=== PATIENT | female | born 1995 | race Caucasian/White ===

== ENCOUNTER 2017-07-23 10:06 | Emergency (ER) | payer OTHER ==
[2017-07-23 10:29] VITALS: BP 122/82
--- NOTE | 2017-07-23 10:42 | UC ---
Respiratory Complaint HPI - HPI Summary HPI Summary: Patient presents to the with CC of cough, sore throat, bilateral ear pain and ringing. She endorses sick contacts. Denies N/V/C/D or APPLE. + for sinus infection last month and treated with abx, but states she has not felt much better since the medication. She has not tried any medication for relief. Denies travel history. Denies other symptoms at this time. - History of Current Complaint Chief Complaint: UCRespiratory Stated Complaint: THROAT\EAR PAIN,COUGH Time Seen by Provider: 07/23/17 10:31 Hx Obtained From: Patient Hx Last Menstrual Period: 06/29/17 ?: No Onset/Duration: Sudden Onset Timing: Constant Severity Initially: Mild Severity Currently: Mild Pain Intensity: 5 Pain Scale Used: 0-10 Numeric Character: Cough: Nonproductive Associated Signs And Symptoms: Positive: Nasal Congestion, Sinus Discomfort - Risk Factors Pulmonary Embolism Risk Factors: Negative Cardiac Risk Factors: Negative Pseudomonas Risk Factors: Negative Tuberculosis Risk Factors: Negative - Allergies/Home Medications Allergies/Adverse Reactions: Allergies Allergy/AdvReac Type Severity Reaction Status Date / Time No Known Allergies Allergy Verified 07/23/17 10:23 Home Medications: Home Medications Escitalopram (NF) [Lexapro 5 mg (NF)] 5 mg PO DAILY 07/23/17 [History Confirmed 07/23/17] PMH/Surg Hx/FS Hx/Imm Hx Previously Healthy: Yes - Surgical History Surgical History: None - Family History Known Family History: Positive: Unknown - Social History Occupation: Employed Part-time Lives: With Family Alcohol Use: Rare Substance Use Type: None Smoking Status (MU): Never Smoked Tobacco Have You Smoked in the Last Year: No - Immunization History Most Recent Influenza Vaccination: NOT IN 2017 Review of Systems Constitutional: Negative Skin: Negative ENT: Sore Throat, Ear Ache, Nasal Discharge, Sinus Congestion Respiratory: Cough Cardiovascular: Negative Motor: Negative Neurovascular: Negative Neurological: Negative Psychological: Negative Is Patient Immunocompromised?: No All Other Systems Reviewed And Are Negative: Yes Physical Exam Triage Information Reviewed: Yes Appearance: Well-Appearing, Well-Nourished Vital Signs: Initial Vital Signs Temp 97.9 F 07/23/17 10:24 Pulse 79 07/23/17 10:24 Resp 16 07/23/17 10:24 BP 122/82 07/23/17 10:24 Pulse Ox 99 07/23/17 10:24 Vital Signs Reviewed: Yes Eye Exam: Normal Eyes: Positive: Conjunctiva Clear Neck exam: Normal Neck: Positive: Supple, No Lymphadenopathy Respiratory Exam: Normal Respiratory: Positive: Chest non-tender, Lungs clear Musculoskeletal Exam: Normal Musculoskeletal: Positive: Strength Intact Neurological Exam: Normal Neurological: Positive: Alert Psychological Exam: Normal Psychological: Positive: Normal Response To Family Skin Exam: Normal UC Diagnostic Evaluation - Laboratory O2 Sat by Pulse Oximetry: 99 Respiratory Course/Dx - Course Course Of Treatment: Patient is evaluated for sinus congestion, cough, ear pain and throat pain. Strep negative. Lungs CTA. Frontal and maxillary sinus without pain. She is given supportive treatment for viral syndrome. She is OK with plan and discharge. Return precautions given. - Differential Dx/Diagnosis Differential Diagnosis/HQI/PQRI: Bronchitis, Influenza, Sinusitis Provider Diagnoses: Viral Syndrome Discharge - Discharge Plan Condition: Stable Disposition: HOME Patient Education Materials: Upper Respiratory Infection (ED), Viral Syndrome ( ED) Forms: *School Release Additional Instructions: Humidifier in the home will help. Tylenol for discomfort. Take all medications as directed. Symptoms should resolve in 1-3 weeks. If symptoms become worse, please come back to or go to the ED. Honey and lemon hot tea Rest plenty of fluids.
== END 2017-07-23 11:04 | disposition home or self-care (01) ==
LOC: UCCORT 10:06
DX: B34.9 Viral infection, unspecified (principal)
CPT/HCPCS: 87651; 99201; G0463

== ENCOUNTER 2017-09-08 11:41 | Emergency (ER) | payer OTHER ==
[2017-09-08 13:51] VITALS: BP 120/69
--- NOTE | 2017-09-25 07:17 | UC ---
Lower Extremity/Ankle HPI - HPI Summary HPI Summary: pt p/w c/o pain on the top of her foot that she noticed last night while studying. she got up from studying and just had pain. she reports mild swelling and pain with plantar flexion of her toes. pt denies any known injury or any regular physical that could incidently lead to injury. she also denies redness, heat or systemic sx. she states that sx were much worse last night . that she had pain with weight bearing and palpation. today sx mostly resolved. no pain with weight bearing. no pain at rest. only mild pain with palpation. - History of Current Complaint Chief Complaint: UCLowerExtremity Stated Complaint: RIGHT FOOT PAIN Time Seen by Provider: 09/08/17 13:58 Hx Obtained From: Patient Hx Last Menstrual Period: 08/14/17 ?: No Onset/Duration: Sudden Onset Severity Initially: Moderate Severity Currently: Mild Pain Intensity: 4 - only with palpation Pain Scale Used: 0-10 Numeric Aggravating Factor(s): Other - touch Alleviating Factor(s): Other - not touching Able to Bear Weight: Yes - Risk Factors Gout Risk Factors: Negative DVT Risk Factors: Negative - Allergies/Home Medications Allergies/Adverse Reactions: Allergies Allergy/AdvReac Type Severity Reaction Status Date / Time No Known Allergies Allergy Verified 09/08/17 13:51 PMH/Surg Hx/FS Hx/Imm Hx Previously Healthy: Yes - Surgical History Surgical History: None - Family History Known Family History: Negative: Cardiac Disease, Hypertension, Diabetes, Blood Disorder - Social History Occupation: Student Lives: Dormitory/Roommates Alcohol Use: Weekly Substance Use Type: None Smoking Status (MU): Never Smoked Tobacco Have You Smoked in the Last Year: No - Immunization History Most Recent Influenza Vaccination: NOT IN 2017 Review of Systems Constitutional: Negative Skin: Negative Respiratory: Negative Cardiovascular: Negative Gastrointestinal: Negative Musculoskeletal: Other: - tenderness All Other Systems Reviewed And Are Negative: Yes Physical Exam Triage Information Reviewed: Yes Appearance: Well-Appearing, No Pain Distress, Well-Nourished Vital Signs: Initial Vital Signs Temp 97.8 F 09/08/17 13:49 Pulse 74 09/08/17 13:49 Resp 16 09/08/17 13:49 BP 120/69 09/08/17 13:49 Pulse Ox 100 09/08/17 13:49 Vital Signs Reviewed: Yes Eyes: Positive: Conjunctiva Clear. Negative: Discharge ENT: Positive: Hearing grossly normal. Negative: Muffled voice, Hoarse voice Neck: Positive: Supple Respiratory: Positive: Lungs clear, Normal breath sounds, No respiratory distress, No accessory muscle use Cardiovascular: Positive: RRR, No Murmur Musculoskeletal: Positive: Other: - minimal swelling over the navicular bone. pt is tender there to palpation. no redness, bruising, calor. fallen plantar arch noted bl on weight bearing along with toe out stance, knee/hip hyperextension. no calf swelling, discoloration, tenderness. neg holmans sign. Neurological: Positive: Alert, Muscle Tone Normal Psychological: Positive: Age Appropriate Behavior Skin Exam: Normal Lower Extremity Course/Dx - Differential Dx/Diagnosis Differential Diagnosis/HQI/PQRI: Contusion, Sprain, Other - SOMATIC DYSFUNCTION , PEZ PLANOUS Provider Diagnoses: FOOT SPRAIN Discharge - Discharge Plan Condition: Stable Disposition: HOME Patient Education Materials: Foot Sprain (ED) Referrals: Non Staff,Doctor [Primary Care Provider] - Additional Instructions: DISCUSSED, YOUR PAIN IS LIKELY THE RESULT OF A FALLEN ARCH. YOU CAN FIX THIS WITH INCREASED MINDFULNESS WHILE WALKING AND STANDING. IF YOU ARE NOT SATISFIED WITH YOU SUCCESS, YOU CAN TRY A-LINE ORTHODICS THAT CAN BE PURCHASED AT [employer] AND [facility] IN [place]. IF THESE RE-TRAINING ORTHODICS ARE NOT GIVING YOU ADEQUATE SUCCESS, YOU CAN TRY GOING TO A ACLS SPECIALIST. YOU WOULD LIKELY BENEFIT FROM OSTEOPATHIC MANIPULATION. WE RECOMMEND THAT YOU FIND AN OSTEOPATHIC PHYSICIAN IN YOUR AREA WHO DOES LYMPHATIC, MYOFACIAL AND VISCERAL WORK. MOREOVER, AN OSTEOPATH CAN LIKELY HELP YOU IMPROVE YOUR OVERALL POSTURE.
== END 2017-09-08 14:28 | disposition home or self-care (01) ==
LOC: UCCORT 11:41
DX: S93.601A Unspecified sprain of right foot, initial encounter (principal); X58.XXXA Exposure to other specified factors, initial encounter; Y93.9 Activity, unspecified; Y92.9 Unspecified place or not applicable
CPT/HCPCS: 99211; G0463

== ENCOUNTER 2017-12-25 16:27 | Emergency (ER) | payer OTHER ==
[2017-12-25 16:52] VITALS: BP 127/68
--- NOTE | 2017-12-25 17:28 | UC ---
Throat Pain/Nasal Joseph HPI - HPI Summary HPI Summary: cough sore throat and nasal drainage - History of Current Complaint Chief Complaint: UCGeneralIllness Stated Complaint: CONGESTED,SORE THROAT,COUGH Time Seen by Provider: 12/25/17 17:24 Hx Obtained From: Patient Hx Last Menstrual Period: 12/24/17 ?: No Onset/Duration: Sudden Onset, Lasting Days - 2, Still Present Severity: Moderate Pain Intensity: 4 Cough: Nonproductive Associated Signs & Symptoms: Positive: Negative - Allergies/Home Medications Allergies/Adverse Reactions: Allergies Allergy/AdvReac Type Severity Reaction Status Date / Time No Known Allergies Allergy Verified 12/25/17 16:52 PMH/Surg Hx/FS Hx/Imm Hx Previously Healthy: No Psychological History: Anxiety - Surgical History Surgical History: None - Family History Known Family History: Positive: Unknown Negative: Cardiac Disease, Hypertension, Diabetes, Blood Disorder - Social History Occupation: Employed Part-time, Student Lives: With Family Alcohol Use: Weekly Substance Use Type: None Smoking Status (MU): Never Smoked Tobacco Have You Smoked in the Last Year: No - Immunization History Most Recent Influenza Vaccination: NOT IN 2017 Review of Systems Constitutional: Negative Skin: Negative Eyes: Negative ENT: Nasal Discharge Respiratory: Cough Cardiovascular: Negative Gastrointestinal: Negative Genitourinary: Negative Motor: Negative Neurovascular: Negative Musculoskeletal: Negative Neurological: Negative Psychological: Negative Is Patient Immunocompromised?: No All Other Systems Reviewed And Are Negative: Yes Physical Exam Triage Information Reviewed: Yes Appearance: No Pain Distress, Well-Nourished, Ill-Appearing - mild Vital Signs: Initial Vital Signs Temp 98.1 F 12/25/17 16:49 Pulse 81 12/25/17 16:49 Resp 20 12/25/17 16:49 BP 127/68 12/25/17 16:49 Pulse Ox 100 12/25/17 16:49 Vital Signs Reviewed: Yes Eye Exam: Normal Eyes: Positive: Conjunctiva Clear ENT Exam: Normal ENT: Positive: Normal ENT inspection, Hearing grossly normal, Pharynx normal, Nasal congestion, Nasal drainage, TMs normal, Uvula midline. Negative: Tonsillar swelling, Tonsillar exudate, Trismus, Muffled voice, Hoarse voice, Dental tenderness, Sinus tenderness Dental Exam: Normal Neck exam: Normal Neck: Positive: Supple, Nontender, No Lymphadenopathy Respiratory Exam: Normal Respiratory: Positive: Chest non-tender, Lungs clear, Normal breath sounds, No respiratory distress, No accessory muscle use Cardiovascular Exam: Normal Cardiovascular: Positive: RRR, No Murmur, Pulses Normal, Brisk Capillary Refill Musculoskeletal Exam: Normal Musculoskeletal: Positive: Strength Intact, ROM Intact, No Edema Neurological Exam: Normal Neurological: Positive: Alert, Muscle Tone Normal Psychological Exam: Normal Skin Exam: Normal Throat Pain/Nasal Course/Dx - Course Assessment/Plan: rest increase fluids, tylenol, ibuprofen, otc cough and cold medicine for symptom relief - Differential Dx/Diagnosis Provider Diagnoses: URI Discharge - Discharge Plan Condition: Stable Disposition: HOME Patient Education Materials: Upper Respiratory Infection (ED) Forms: *Work Release Referrals: [facility] [Outside] - If Needed
== END 2017-12-25 17:35 | disposition home or self-care (01) ==
LOC: UCCORT 16:27
DX: J06.9 Acute upper respiratory infection, unspecified (principal)
CPT/HCPCS: 99211; G0463